=== PATIENT | male | born 1960 | race Caucasian/White ===

== ENCOUNTER 2022-04-06 09:38 | Outpatient (CLI) | payer OTHER, SELFPAY ==
[2022-04-06 13:21] LABS: Chloride* 105 mmol/L (96-114); Potassium* 4.5 mmol/L (3.6-5.1); Sodium* 139 mmol/L (135-149)
[2022-04-06 13:23] LABS: Carbon Dioxide* 27 mmol/L (20-32); Cholesterol* 176 mg/dL (90-199); Creatinine* 0.8 mg/dL (0.5-1.5); Estimated Glomerular Filt Rate 99 ml/min
[2022-04-06 13:24] LABS: Blood Urea Nitrogen* 24 mg/dL (7-30); Calcium* 9.4 mg/dL (8.4-10.6); Glucose* 97 mg/dL (60-115); HDL Cholesterol* 75 mg/dL (>=40); LDL Cholesterol Calculated 88 mg/dL (<100); Triglycerides* 63 mg/dL (40-149)
[2022-04-06 13:56] LABS: PSA Screen* 1.77 ng/mL (0.10-4.00)
== END 2022-04-06 09:39 | disposition home or self-care (01) ==
PROVIDERS: PCP Family Medicine; Visit Provider Family Medicine
DX: Z00.00 Encounter for general adult medical examination without abnormal findings (principal); Z12.5 Encounter for screening for malignant neoplasm of prostate; Z13.6 Encounter for screening for cardiovascular disorders
CPT/HCPCS: 80048; 80061; 84153

== ENCOUNTER 2022-05-07 08:09 | Outpatient (CLI) | payer OTHER, SELFPAY ==
--- NOTE | 2022-05-07 10:12 | W.ANESCHARGE ---
Anesthesia Charges Start Date/Time Anesthesia Start Date: 05/07/22 Anesthesia Start Time: 09:39 Stop Date/Time Anesthesia Stop Date: 05/07/22 Anesthesia Stop Time: 10:07
== END 2022-05-07 08:10 | disposition home or self-care (01) ==
PROVIDERS: PCP Family Medicine; Visit Provider Internal Medicine
DX: Z12.11 Encounter for screening for malignant neoplasm of colon (principal); K62.1 Rectal polyp; K63.5 Polyp of colon; K57.30 Diverticulosis of large intestine without perforation or abscess without bleeding
CPT/HCPCS: 00811; 45380; 45385; 88305; J2704

== ENCOUNTER 2023-04-19 08:29 | Outpatient (CLI) | payer OTHER, SELFPAY | END 2023-04-19 08:30 | disposition home or self-care (01) | PROVIDERS: PCP Family Medicine; Visit Provider Family Medicine | DX: E78.00 Pure hypercholesterolemia, unspecified (principal); E55.9 Vitamin D deficiency, unspecified; N40.0 Benign prostatic hyperplasia without lower urinary tract symptoms; Z11.59 Encounter for screening for other viral diseases | CPT/HCPCS: 80053; 80061; 82652; 84270; 84402; 84403; 86803; G0103 ==

== ENCOUNTER 2024-05-01 08:17 | Outpatient (CLI) | payer MEDICARE, SELFPAY | END 2024-05-01 08:18 | disposition home or self-care (01) | PROVIDERS: PCP Family Medicine; Visit Provider Family Medicine | DX: R17 Unspecified jaundice (principal); E55.9 Vitamin D deficiency, unspecified; D64.9 Anemia, unspecified; R53.83 Other fatigue; R68.82 Decreased libido; N40.0 Benign prostatic hyperplasia without lower urinary tract symptoms; Z13.6 Encounter for screening for cardiovascular disorders; Z12.5 Encounter for screening for malignant neoplasm of prostate; Z87.898 Personal history of other specified conditions | CPT/HCPCS: 80053; 80061; 82248; 82652; 84270; 84402; 84403; G0103 ==